=== PATIENT | female | born 2005 | race Caucasian/White ===

== ENCOUNTER 2023-12-14 10:54 | Emergency (ER) | payer BC, SELFPAY ==
[2023-12-14 10:55] VITALS: BP 134/94
--- NOTE | 2023-12-14 12:14 | ED.GENMED ---
Addendum entered and electronically signed by Dejan rAndt PA-C 12/19/23 07:05:
Genital culture positive for HSV 1. Called patient and notified her of the results. She has been treated with Valtrex.
Original Note:
History of Present Illness
General
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
Source: patient
Exam Limitations: none
Time Seen by Provider: 12/14/23 11:35
Nursing documentation reviewed up to this point in time: agreed with
Travel History
Have you had any contact with someone who has COVID-19?: No
Do you have any symptoms of coronavirus? Fever > 100 degrees, chills, cough, shortness of breath, sore throat, loss of taste or smell, muscle aches, or headache?: No
History of Present Illness
History of Present Illness:
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
here with rash on her mouth and labia on vagina for several days
she says at the beginning she had mouth sores and burning in her labia region an dfelt like she was coming down with the flu. she went to urgent care 2 days ago and says she was told that she could have bumps on her vagina from shaving. . she also
was given diflucan tabs, triamcinolone cream for mouth and nystatin for vagina
she has been doin those treatments and not getting better.
then she got a phone call saying she could have a rare form of trichomonas and was given flagyl
she took 2 doses of that
when pt urinates she feels burning and has a lot of labial pain
no fever, pelvic pain, vomiting, diarrhea
she has 1 sexual partner, he doesn't have any symptosm that she knows of
she has never had herpes before
she has had oral sex.
Past History
Past History
ED Past Medical History: None
ED Past Surgical History: None
Review of Systems
Review of Systems
Allergies reviewed?: Yes
All Other Systems: Not applicable
Phy Exam
Physical Exam
Physical Exam:
GENERAL: Alert , anxious
EYE: pupils equal and reactive
NECK: Supple
ENT: yellowish lesions with erythematous base on mucosa of lower lip
CARDIAC: Regular rate and rhythm .
LUNGS: Clear breath sounds bilaterally, no acute respiratory distress, no wheezes/rales/rhonchi
ABDOMEN: Soft, without focal tenderness, no r/g, no cvat, normal bowel sounds
: labia slightly swollen
many vesicular lesions b/l labia
very tender
some vaginal bleeding on pelvic exam; no obvious cervcitis
no abdominal tenderness
NEUROLOGICAL: Alert and oriented, no focal neuro deficits
SKIN: Warm and dry, skin intact.
MUSCULOSKELETAL: No edema, well perfused. neg chiqui's sign
PSYCH: Normal and appropriate interaction.
Course
Orders/Labs/Results
Orders:
Orders
12/14/23 12:10
US Pelvis W Transvag Combined Urgent
Reason For Exam: iud placement
12/14/23 12:17
Herpes Simplex Vir Subtype PCR [S] Urgent
Herpes Source: Vesicular Fluid
Chlamydia/GC by PCR Urgent
TIMA Source: Endo-Cervical
Specimen Description:
Source:: CERVIX
Date Specimen was Collected: 12/14/23
Time Specimen was Collected: 12:15
Trichomonas - Wet Prep Urgent
TIMA Source: Vagina
Specimen Description:
Date Specimen was Collected: 12/14/23
Time Specimen was Collected: 12:15
12/14/23 12:19
Acetaminophen [Tylenol] 1,000 mg PO NOW STA
Valacyclovir HCl [Valtrex] 1,000 mg PO NOW STA
12/14/23 12:59
HIV Combo Urgent
RPR [Syphilis/T. pallidum Ab Reflex] Urgent
Vital Signs
Initial and Last Documented VS:
Initial Vital Signs
Temp Pulse Resp BP Pulse Ox
98.3 F 129 16 134/94 98
12/14/23 10:55 12/14/23 10:55 12/14/23 10:55 12/14/23 10:55 12/14/23 10:55
Last Documented Vital Signs
Temp Pulse Resp BP Pulse Ox
98.3 F 104 18 130/84 99
12/14/23 10:55 12/14/23 13:58 12/14/23 13:58 12/14/23 13:58 12/14/23 13:58
MDM/Problems Addressed
Differential Diagnosis Includes:
Herpes simplex 1, herpes simplex 2, syphilis
MDM/Problems Addressed:
18-year-old female presents after already been evaluated at urgent care 2 days ago for oral cold sores as well as genital lesions which are causing pretty severe labial pain, worse with movement and urination. Patient has never had any herpetic
lesions before. However she has had shingles at age 13. She is sexually active with 1 partner. She has not aware that he has any lesions. She does admit that she had oral sex recently
The patient says she went to urgent care 2 days ago and showed the provider her lesions in her mouth as well as the bumps on her labia and she was told that they were probably here bumps. She was given triamcinolone cream for her mouth, nystatin
cream and Diflucan for her labial discomfort. She has not gotten any better. Patient reports having chills and feeling feverish on the day that symptoms began. Based on her exam it seems fairly likely that she has genital herpes. This could
potentially be HSV 1 however I suspect its most likely HSV-2. Regardless she will be treated with Valtrex twice daily for 7 to 10 days, pain meds. Patient was concerned about the placement of her IUD, she had no significant pelvic pain but has had
some irregular vaginal bleeding, patient says with her IUD she sometimes just spots. She wanted her IUD checked. On pelvic exam I was unable to visualize the strings, she was very uncomfortable with the speculum exam and thus I proceeded to fill
her bladder and send her for an ultrasound instead which confirmed placement of her IUD. Patient was tested for gonorrhea and chlamydia but I do not suspect that she has PID. Her trichomonas was negative. I sent HIV and an RPR as well.
Incidentally on the ultrasound she has a large ovarian cyst, she was told to follow-up for this and return for any sudden worsening of pain as they are at risk for torsion.
Safe sex practices counseled. Patient's partner was in the room as well and is aware of all of these findings after she gave permission for me to speak in front of him.
Note that I did speak with one of the providers at the urgent care where she was seen and I cannot
Reasonably conclude why she was given Flagyl a day after she was seen. There were no results for the provider to find that would make it necessary for her to have Flagyl. Patient was told to stop all of those medications
*Critical Care Note
Total Time (30-74mins, 75-104mins- exclusive of procedures): Not Applicable
ED Attending Note
-
Portions of this chart may have been created with voice recognition software.� Occasional wrong word or��sound alike� substitutions may have occurred due to the inherent limitations of voice recognition software.
Discharge Plan
Departure
Patient Disposition: Home (Routine Discharge)
Date of Disposition: 12/14/23
Time of Disposition: 13:39
Patient with high blood pressure during this ER visit?: No
Condition: Fair
Covid-19: Not Applicable
Discharge Problem:
Herpes
Instructions: Cold Sores (Oral Herpes) (DC)
Prescriptions:
New
valacyclovir 500 mg tablet
1,000 mg PO BID 10 Days Qty: 40 0RF
tramadol 50 mg tablet
50 mg PO Q8H PRN (Reason: Pain) Qty: 9 0RF
Referrals:
PRIVATE,PHYSICIAN [Family Provider] -
Activity Restrictions/Additional Instructions:
YOUR SYMPTOMS SEEM TO BE CONSISTENT WITH HERPES
WE TESTED YOU, IT WILL TAKE A FEW DAYS TO RESULT
NO SEX UNTIL LESIONS ARE GONE
USE PROTECTION TO PREVENT SPREAD IF YOUR TEST IS POSITIVE.
YOU TESTED NEGATIVE FOR TRICHMONOAS
YOU CAN STOP THE METRONIDAZOLE, TRIAMCINOLONE AND NYSTATIN CREAMS
INSTEAD TAKE VALACYCLOVIR 1000 MG 2 TIMES A DAY FOR 7-10 DAYS
FOR PIAN YOU CAN USE TYLENOL EVERY 6 HOURS NEEDED
YOU CAN ALSO TAKE TRAMADOL 50 MG EVERY 8HOURS NEEDED, THIS IS A STRONGER PAIN MED, NO ALCOHOL OR DRIVING ON THIS MEDICATION
[facility]
RETURN FOR ANY CONCENRS.
Interventions
Interventions:
*Risk Screen - Suicide Last Done: 12/14/23 13:10
*General Assessment Last Done: 12/14/23 10:55
*Neglect/Abuse Screening Last Done: 12/14/23 13:10
ED- Fall Risk Assessment Last Done: 12/14/23 13:10
*ED COVID-19 Vaccine History Last Done: 12/14/23 10:55
ED-Female Genitourinary Assessment Last Done: 12/14/23 13:08
[2023-12-14] MEDS: VALTREX 1000 MG PO (12:53)
[2023-12-14] MEDS: TYLENOL 1000 MG PO (12:53)
[2023-12-14 13:58] VITALS: BP 130/84
[2023-12-15 15:51] LABS: HIV Combo Negative (Negative)
[2023-12-15 17:14] LABS: Syphilis/T. pallidum Ab Reflex Negative (Negative)
[2023-12-17 10:10] LABS: HSV 1 Subtype by PCR Detected; HSV 2 Subtype by PCR Not Detected; Herpes Simplex Source Vesicle
== END 2023-12-14 14:04 | disposition home or self-care (01) ==
LOC: EMR 10:54
PROVIDERS: Physician Assistant; EMERGENCY PHYSICIAN Emergency Medicine
DX: B00.9 Herpesviral infection, unspecified (principal); N93.8 Other specified abnormal uterine and vaginal bleeding; Z97.5 Presence of (intrauterine) contraceptive device
CPT/HCPCS: 99284; 76830; 76856; 86780; 87210; 87389; 87491; 87529; 87591